=== PATIENT | female | born 1985 | race Caucasian/White ===

== ENCOUNTER 2017-06-11 11:46 | Emergency (ER) | payer OTHER ==
[~2017-06-11] VITALS: Ht 152.4 cm; Wt 48.1 kg
[~2017-06-11 11:46] MED LIST: AEROCHAMBER1 PKT INH; ALBUTEROL SULF8.5 GM INH; AZITHROMYCIN250 MG PO; CEPHALEXIN500 MG PO; CIPROFLOXACIN250 MG PO; LORTAB 5-325 M1 EACH PO; NORCO 5-325 TA1 EACH PO; PYRIDIUM200 MG PO; TRAMADOL HCL50 MG PO; ZOFRAN ODT4 MG PO; ZOFRAN ODT4 MG SL
[2017-06-11] MEDS ORDERED: BACTRIM DS TAB1 EACH PO (13:32)
[2017-10-09] MEDS ORDERED: PHENAZOPYRIDIN100 MG (19:22)
[2017-10-09] MEDS ORDERED: NORCO 5-325 TA1 EACH PO (22:45)
== END 2017-06-11 13:51 | disposition home or self-care (01) ==
LOC: ED 11:46
DX: O20.9 Hemorrhage in early pregnancy, unspecified (principal); O23.41 Unspecified infection of urinary tract in pregnancy, first trimester; O99.331 Smoking (tobacco) complicating pregnancy, first trimester; F17.200 Nicotine dependence, unspecified, uncomplicated; Z91.018 Allergy to other foods; Z91.040 Latex allergy status; Z3A.11 11 weeks gestation of pregnancy
CPT/HCPCS: 76815; 76817; 81001; 84702; 85025; 99284

== ENCOUNTER 2017-06-27 15:20 | Emergency (ER) | payer OTHER ==
[~2017-06-27] VITALS: Ht 152.4 cm; Wt 48.1 kg
[~2017-06-27 15:20] MED LIST changes: +BACTRIM DS TAB1 EACH PO
[2017-10-09] MEDS ORDERED: PHENAZOPYRIDIN100 MG (19:22)
[2017-10-09] MEDS ORDERED: NORCO 5-325 TA1 EACH PO (22:45)
== END 2017-06-27 20:15 | disposition home or self-care (01) ==
LOC: ED 15:20
DX: O20.9 Hemorrhage in early pregnancy, unspecified (principal); Z91.040 Latex allergy status; Z91.018 Allergy to other foods; Z79.899 Other long term (current) drug therapy; Z3A.00 Weeks of gestation of pregnancy not specified
CPT/HCPCS: 80053; 83690; 84702; 84703; 85025; 96374; 99284; J2405

== ENCOUNTER 2017-12-20 08:24 | Emergency (ER) | payer OTHER ==
[~2017-12-20] VITALS: Ht 152.4 cm; Wt 48.1 kg
[~2017-12-20 08:24] MED LIST changes: +PHENAZOPYRIDIN100 MG
== END 2017-12-20 09:05 | disposition home or self-care (01) ==
LOC: ED 08:24
PROC: 2W2BX4Z Dressing of Left Upper Arm using Bandage (ICD-10-PCS; principal; 2017-12-20)
DX: T22.212A Burn of second degree of left forearm, initial encounter (principal); T31.0 Burns involving less than 10% of body surface; F17.200 Nicotine dependence, unspecified, uncomplicated; Z23 Encounter for immunization; Z91.040 Latex allergy status; Z88.8 Allergy status to other drugs, medicaments and biological substances; X19.XXXA Contact with other heat and hot substances, initial encounter; Y92.69 Other specified industrial and construction area as the place of occurrence of the external cause; Y99.0 Civilian activity done for income or pay
CPT/HCPCS: 16020; 90471; 90715; 99282

== ENCOUNTER → 2017-12-25 | Emergency (ER) | payer OTHER ==
[~2017-12-25] VITALS: Ht 152.4 cm; Wt 48.1 kg
== END ==
LOC: ED 17:01
DX: T22.212D Burn of second degree of left forearm, subsequent encounter (principal); T31.0 Burns involving less than 10% of body surface; F17.200 Nicotine dependence, unspecified, uncomplicated; Z91.040 Latex allergy status; Z91.018 Allergy to other foods; X19.XXXD Contact with other heat and hot substances, subsequent encounter
CPT/HCPCS: 99282

== ENCOUNTER 2019-01-07 10:21 | Emergency (ER) | payer OTHER ==
[~2019-01-07] VITALS: Ht 152.4 cm; Wt 48.1 kg
[2019-01-07] MEDS ORDERED: PREDNISONE20 MG PO (12:29)
[2019-01-07] MEDS ORDERED: VENTOLIN HFA18 GM INH (12:29)
== END 2019-01-07 13:17 | disposition home or self-care (01) ==
LOC: ED 10:21
DX: J40 Bronchitis, not specified as acute or chronic (principal); F17.200 Nicotine dependence, unspecified, uncomplicated
CPT/HCPCS: 87502; 99283; J7512

== ENCOUNTER 2019-09-10 03:16 | Emergency (ER) | payer OTHER ==
[~2019-09-10] VITALS: Ht 152.4 cm; Wt 48.1 kg
[~2019-09-10 03:16] MED LIST changes: +PREDNISONE20 MG PO; +VENTOLIN HFA18 GM INH
[2019-09-10] MEDS ORDERED: NORCO 5-325 TA1 EACH PO (06:07)
[2019-09-10] MEDS ORDERED: DOXYCYCLINE HY100 MG PO (06:07)
== END 2019-09-10 06:48 | disposition home or self-care (01) ==
LOC: ED 03:16
DX: A41.9 Sepsis, unspecified organism (principal); N73.0 Acute parametritis and pelvic cellulitis; F17.200 Nicotine dependence, unspecified, uncomplicated; Z91.018 Allergy to other foods; Z91.040 Latex allergy status
CPT/HCPCS: 71046; 74177; 80053; 81001; 83605; 83690; 84703; 85025; 87491; 87591; 96374; 96375; 99284-25; J0696; J1170; J2405; J7030; Q9967

== ENCOUNTER 2020-09-09 19:51 | Emergency (ER) | payer OTHER ==
[~2020-09-09] VITALS: Ht 152.4 cm; Wt 56.7 kg
[~2020-09-09 19:51] MED LIST changes: +DOXYCYCLINE HY100 MG PO
--- OUTSIDE RECORDS SUMMARY | 2020-09-09 19:54 | XMS ---
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 Mahin has no Care Guidelines for this patient. Elvin VISIT COUNT (12 MO.) 2 [facility] TOTAL 2 NOTE: Visits indicate total known visits. ED/UCC VISIT TRACKING (12 MO.) 09/09/2020 19:52 [facility] TYPE: Emergency COMPLAINT: - POSS HEMORRHOID 09/10/2019 03:16 [facility] TYPE: Emergency COMPLAINT: - ABD CRAMPS DIAGNOSES: - Latex allergy status - Sepsis, unspecified organism - Acute parametritis and pelvic cellulitis - Allergy to other foods - Nicotine dependence, unspecified, uncomplicated - Fever, unspecified INPATIENT VISIT TRACKING (12 MO.) No inpatient visits to display in this time frame [email or web address]
[2020-09-09] MEDS ORDERED: ANUSOL-HC30 GM PR (20:10)
== END 2020-09-09 20:18 | disposition home or self-care (01) ==
LOC: ED 19:51
DX: K64.4 Residual hemorrhoidal skin tags (principal); F17.200 Nicotine dependence, unspecified, uncomplicated; Z88.8 Allergy status to other drugs, medicaments and biological substances; Z91.040 Latex allergy status
CPT/HCPCS: 99282

== ENCOUNTER 2020-10-03 19:24 | Emergency (ER) | payer OTHER ==
[~2020-10-03] VITALS: Ht 154.9 cm; Wt 52.0 kg
[~2020-10-03 19:24] MED LIST changes: +ANUSOL-HC30 GM PR
--- OUTSIDE RECORDS SUMMARY | 2020-10-03 19:28 | XMS ---
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 Elvin VISIT COUNT (12 MO.) 2 [facility] TOTAL 2 NOTE: Visits indicate total known visits. ED/UCC VISIT TRACKING (12 MO.) 10/03/2020 19:26 [facility] TYPE: Emergency COMPLAINT: - POSSIBLE STAPH INFECTION 09/09/2020 19:52 [facility] TYPE: Emergency COMPLAINT: - POSS HEMORRHOID DIAGNOSES: - Nicotine dependence, unspecified, uncomplicated - Latex allergy status - Other specified diseases of anus and rectum - Residual hemorrhoidal skin tags - Allergy status to other drugs, medicaments and biological substances INPATIENT VISIT TRACKING (12 MO.) No inpatient visits to display in this time frame [email or web address]
== END 2020-10-03 21:44 | disposition home or self-care (01) ==
LOC: ED 19:24
DX: Z03.89 Encounter for observation for other suspected diseases and conditions ruled out (principal); Z71.89 Other specified counseling; F17.200 Nicotine dependence, unspecified, uncomplicated; Z91.040 Latex allergy status; Z91.018 Allergy to other foods
CPT/HCPCS: 81001; 84703; 99283

== ENCOUNTER 2022-06-08 08:58 | Emergency (ER) | payer OTHER ==
[~2022-06-08] VITALS: Ht 154.9 cm; Wt 51.7 kg
--- NOTE | ~2022-06-08 | EKG ---
[facility] [address] [place], [place] [address] Draft EKG completed, results pending confirmation PATIENT NAME: SOCOCEASAR PERDUE Electrocardiogram DATE OF : 87 PHYSICIAN: PRELIMINARY REPORT #: [id number] REPORT IS CONFIDENTIAL AND NOT TO BE RELEASED WITHOUT AUTHORIZATION
[2022-06-08] MEDS ORDERED: AMOXICILLIN500 MG PO (09:17)
== END 2022-06-08 11:38 | disposition home or self-care (01) ==
LOC: ED 08:58
DX: K08.89 Other specified disorders of teeth and supporting structures (principal); T36.0X5A Adverse effect of penicillins, initial encounter; F17.200 Nicotine dependence, unspecified, uncomplicated; Z91.040 Latex allergy status; Z91.018 Allergy to other foods
CPT/HCPCS: 36415; 71045; 80053; 84703; 85025; 85379; 93005; 93010; 99284-25

== ENCOUNTER 2022-08-31 07:46 | Emergency (ER) | payer OTHER ==
[~2022-08-31] VITALS: Ht 154.9 cm; Wt 52.5 kg
[~2022-08-31 07:46] MED LIST changes: +AMOXICILLIN500 MG PO
== END 2022-08-31 08:15 | disposition home or self-care (01) ==
LOC: ED 07:46
DX: K08.89 Other specified disorders of teeth and supporting structures (principal); G89.29 Other chronic pain; F17.200 Nicotine dependence, unspecified, uncomplicated; Z91.040 Latex allergy status; Z91.018 Allergy to other foods
CPT/HCPCS: 99282

== ENCOUNTER 2022-09-13 08:09 | Emergency (ER) | payer OTHER ==
[~2022-09-13] VITALS: Ht 154.9 cm; Wt 52.0 kg
--- OUTSIDE RECORDS SUMMARY | 2022-09-13 08:12 | XMS ---
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 Elvin VISIT COUNT (12 MO.) 3 [facility] TOTAL 3 NOTE: Visits indicate total known visits. ED/C VISIT TRACKING (12 MO.) 09/13/2022 08:10 [facility] TYPE: Emergency COMPLAINT: - SHOB,LT ARM PAIN 08/31/2022 07:47 [facility] TYPE: Emergency COMPLAINT: - DENTAL PROBLEM DIAGNOSES: - Allergy to other foods - Other chronic pain - Latex allergy status - Nicotine dependence, unspecified, uncomplicated - Other specified disorders of teeth and supporting structures 06/08/2022 08:59 [facility] TYPE: Emergency COMPLAINT: - TOOTH PAIN, SOB, HEART PALPITATIONS DIAGNOSES: - Latex allergy status - Other specified disorders of teeth and supporting structures - Allergy to other foods - Nicotine dependence, unspecified, uncomplicated - Adverse effect of penicillins, initial encounter INPATIENT VISIT TRACKING (12 MO.) No inpatient visits to display in this time frame [id number]
[2022-09-13] MEDS ORDERED: HYDROXYZINE HCL25 MG PO (08:52)
--- NOTE | 2022-09-13 15:26 | EKG ---
[facility] [address] [place], [place] [address] Signed Sinus tachycardia Otherwise normal ECG When compared with ECG of 08-JUN-2022 09:09, No significant change was found Confirmed by RAMON BELTRAN MD ([id number] on 09/13/2022 3:25:56 PM Electronically Signed By: RAMON BELTRAN MD 09/13/22 1526 PATIENT NAME: SOCOCEASAR J Electrocardiogram DATE OF : 87 PHYSICIAN: RAMON BELTRAN MD REPORT #: [id number] REPORT IS CONFIDENTIAL AND NOT TO BE RELEASED WITHOUT AUTHORIZATION
== END 2022-09-13 09:00 | disposition home or self-care (01) ==
LOC: ED 08:09
DX: F41.9 Anxiety disorder, unspecified (principal); F17.200 Nicotine dependence, unspecified, uncomplicated; Z91.040 Latex allergy status; Z91.048 Other nonmedicinal substance allergy status
CPT/HCPCS: 36415; 80053; 84443; 85025; 93005; 93010; 99283-25

== ENCOUNTER 2024-03-20 19:15 | Emergency (ER) | payer OTHER ==
[~2024-03-20] VITALS: Ht 154.9 cm; Wt 60.0 kg
[~2024-03-20 19:15] MED LIST changes: +HYDROXYZINE HCL25 MG PO
[2024-03-20] MEDS ORDERED: DOXYCYCLINE HY100 MG PO (20:05)
[2024-03-20] MEDS ORDERED: DOXYCYCLINE HYCLATE 100 MG CAP PO ONE (20:15)
[2024-03-20 20:43] VITALS: BP 127/76
== END 2024-03-20 20:44 | disposition home or self-care (01) ==
LOC: ED 19:15
DX: L02.415 Cutaneous abscess of right lower limb (principal); L03.115 Cellulitis of right lower limb; F41.9 Anxiety disorder, unspecified; F17.200 Nicotine dependence, unspecified, uncomplicated; Z91.018 Allergy to other foods; Z91.040 Latex allergy status
CPT/HCPCS: 84703